=== PATIENT | male | born 1995 | race Caucasian/White ===

== ENCOUNTER 2017-10-19 21:05 | Emergency (ER) | payer OTHER ==
[~2017-10-19] VITALS: Ht 182.9 cm; Wt 126.2 kg
[~2017-10-19 21:05] MED LIST: ZOLO25TA PO
[2017-10-19 21:24] VITALS: BP 144/102; PULSE 102; RESP 18; TEMP 99; O2SAT 98
[2017-10-20] MEDS ORDERED: PHENERGAN W CODEIN PO (00:10)
[2017-10-20] MEDS ORDERED: ZITHTAB PO (00:10)
--- NOTE | 2017-10-20 00:10 | PD ---
HPI Chief Complaint: Cold / Flu Symptoms Time Seen by Provider: 23:37 Travel History International Travel<30 days: No Contact w/Intl Traveler<30days: No Traveled to known affect area: No History of Present Illness HPI 22-year-old male complains of persistent coughing. Patient states that he started having headache, earache sore throat coughing congestion body aches about 5 days ago. Patient with seen at local urgent care center and was not tested positive for flu. Patient does not know whether flu A or flu B. Patient with given prescription for Tessalon Perles for cough. Patient states that the headache, sore throat, body ache, got better. Patient however has persistent cough. Patient states that the cough is productive. Patient complains of chest wall pain with coughing. Patient states that he has occasional vomiting with coughing spells. Patient denies any fever chills now. Patient has been taking Tessalon without much relief of the coughing. PFSH Past Medical History ADHD: No Cancer: No Cardiovascular Problems: No Diabetes: No Psychiatric: Yes (DEPRESSION) Migraines: Yes (PAST) Seizures: No Thyroid Disease: No Ulcer: No Tetanus Vaccination: < 5 Years Influenza Vaccination: No Past Surgical History Other Surgery: No Social History Alcohol Use: No Tobacco Use: No Substance Use: No Allergies-Medications (Allergen,Severity, Reaction): Coded Allergies: No Known Allergies (Unverified Allergy, Unknown, 10/19/17) Penicillins (Verified Allergy, Unknown, 10/19/17) Reported Meds & Prescriptions Reported Meds & Active Scripts Active [Phenergan W Codein] 10 Ml PO Q8HR Zithromax Z-Jose (Azithromycin) 250 Mg Dspk 250 Mg PO DIRECTED 500 MG (2 tabs) day 1, then 1 tab days 2-5. Reported Zoloft (Sertraline HCl) 25 Mg Tab 25 Mg PO AFTER DINNER Review of Systems General / Constitutional: No: Fever Eyes: No: Visual changes HENT: No: Headaches Cardiovascular: No: Chest Pain or Discomfort Respiratory: Positive: Cough, No: Shortness of Breath Gastrointestinal: No: Abdominal Pain Genitourinary: No: Dysuria Musculoskeletal: No: Pain Skin: No Rash Neurologic: No: Weakness Psychiatric: No: Depression Endocrine: No: Polydipsia Hematologic/Lymphatic: No: Easy Bruising Physical Exam Narrative GENERAL: Well-nourished, well-developed patient. SKIN: Focused skin assessment warm/dry. HEAD: Normocephalic. EYES: No scleral icterus. No injection or drainage. TM: Clear. Throat: Nonerythematous. NECK: Supple, trachea midline. No JVD or lymphadenopathy. CARDIOVASCULAR: Regular rate and rhythm without murmurs, gallops, or rubs. RESPIRATORY: Breath sounds equal bilaterally. No accessory muscle use. GASTROINTESTINAL: Abdomen soft, non-tender, nondistended. MUSCULOSKELETAL: No cyanosis, or edema. BACK: Nontender without obvious deformity. No CVA tenderness. Neurologic exam normal. Data Data Last Documented VS Vital Signs Date Time Temp Pulse Resp B/P (MAP) Pulse Ox O2 Delivery O2 Flow Rate FiO2 10/19/17 21:24 99.0 102 18 144/102 (116) 98 Orders Orders Chest, Single Ap (10/19/17 23:50) [facility] Medical Decision Making Medical Screen Exam Complete: Yes Emergency Medical Condition: Yes Interpretation(s) Chest x-ray shows no acute consolidation. Differential Diagnosis Differential diagnosis including bronchitis, pneumonia. Narrative Course 22-year-old male with persistent cough after flu symptoms. Zithromax 500 mg p.o. given. Diagnosis Primary Impression: Bronchitis Patient Instructions: General Instructions Additional Instructions: Take medications as directed. Tylenol for fever. Follow-up with personal physician. Return if worse. Med/Other Pt SpecificInfo: Prescription(s) given Scripts [Phenergan W Codein] No Conflict Check 10 ML PO Q8HR for Cough, #120 Prov: Olu Parada MD 10/20/17 Azithromycin (Zithromax Z-Jose) 250 Mg Dspk 250 MG PO DIRECTED for Infection, #1 DSPK 0 Refills 500 MG (2 tabs) day 1, then 1 tab days 2-5. Prov: Olu Parada MD 10/20/17 Disposition: DISCHARGE HOME Condition: Stable Olu Parada MD Oct 20, 2017 00:10
--- NOTE | 2017-10-20 00:27 | RADRPT ---
EXAM DATE/TIME: 10/19/2017 23:56 [facility] COMPARISON: No previous studies available for comparison. INDICATIONS : Cough. MEDICAL HISTORY : None. SURGICAL HISTORY : None. ENCOUNTER: Initial ACUITY: 2 days PAIN SCORE: 0/10 LOCATION: Bilateral chest FINDINGS: A single view of the chest demonstrates the lungs to be symmetrically aerated without evidence of mas s, infiltrate or effusion. The cardiomediastinal contours are unremarkable. Osseous structures are intact. CONCLUSION: No acute disease. Asael Edmonds MD on October 20, 2017 at 0:25 Board Certified Radiologist. This report was verified electronically.
[2017-10-20] MEDS ORDERED: AZITHROMYCIN 250 MG TAB PO ONE (00:30)
== END 2017-10-20 00:29 | disposition home or self-care (01) ==
LOC: PHED 21:05
DX: J40 Bronchitis, not specified as acute or chronic (principal); R07.89 Other chest pain; R11.10 Vomiting, unspecified; F32.9 Major depressive disorder, single episode, unspecified
CPT/HCPCS: 71045; 99284

== ENCOUNTER 2017-12-10 14:55 | Emergency (ER) | payer OTHER ==
[~2017-12-10] VITALS: Ht 182.9 cm; Wt 127.0 kg
[~2017-12-10 14:55] MED LIST changes: +PHENERGAN W CODEIN PO; +ZITHTAB PO
[2017-12-10 15:00] VITALS: BP 140/98; PULSE 117; RESP 16; TEMP 98.3; O2SAT 97
[2017-12-10] MEDS ORDERED: PRED20 PO (15:17)
[2017-12-10] MEDS ORDERED: MAGICADU2 SWISH-SWAL (15:17)
[2017-12-10] MEDS ORDERED: AMOX875T PO (15:17)
--- NOTE | 2017-12-10 15:22 | PD ---
HPI Chief Complaint: ENT Complaint Time Seen by Provider: 15:10 Travel History International Travel<30 days: No Contact w/Intl Traveler<30days: No Traveled to known affect area: No History of Present Illness HPI 22-year-old male that presents to the ED for evaluation of sore throat. Per patient has had this for about 2-3 days. Swelling and exudates bilaterally. Per patient he also has had large tonsils but he has never had pain like this before. States having some congestion but no cough. Per patient herself to swallow. No other medical issues. Able to swallow with a lot of discomfort. Per patient the pain is 7 out of 10. Hasn't taken anything for this. No other medical issues. No recent travel. No sick contacts. No fevers chills or sweats. PFSH Past Medical History ADHD: No Cancer: No Cardiovascular Problems: No Diabetes: No Medical other: Yes (tonsilar stones) Psychiatric: Yes (DEPRESSION) Migraines: Yes (PAST) Seizures: No Thyroid Disease: No Ulcer: No Tetanus Vaccination: Unknown Influenza Vaccination: No Past Surgical History Surgical History: No Previous Surgery Other Surgery: No Social History Alcohol Use: No Tobacco Use: No Substance Use: No Allergies-Medications (Allergen,Severity, Reaction): Coded Allergies: No Known Allergies (Unverified , 12/10/17) Reported Meds & Prescriptions Reported Meds & Active Scripts Active Magic Mouthwash Adult Liq (Multi-Ingredient Mouthwash/Gargle) 120 Ml Susp 5 Ml SWISH-SWAL ACHS Each 5mL contains: Nystatin 200,000units, Diphenhydramine 4.25mg, Viscous Lidocaine 10mg, Blair syrup 0.8 mL Amoxicillin 875 Mg Tab 875 Mg PO BID 10 Days Prednisone 20 Mg Tab 20 Mg PO BID 5 Days Review of Systems Except as stated in HPI: all other systems reviewed are Neg Physical Exam Narrative GENERAL: Well-nourished, well-developed patient in no apparent distress. SKIN: Warm and dry. HEAD: Atraumatic. Normocephalic. EYES: Pupils equal and round reactive to light and accommodation. No scleral icterus. No injection or drainage. ENT: No nasal bleeding or discharge. Mucous membranes pink and moist. TMs are clear with no sign of infection or perforation. No mastoid tenderness. Ear canals are intact bilaterally. No lymphadenopathy. Nostril mucosa is red and moist with clear mucus noted. No sinus tenderness to palpation noted. Tonsils are enlarged or swollen bilaterally with exudates bilaterally and not touching. No ulvua Deviation. Tongue is midline. NECK: Trachea midline. No JVD. No meningeal signs noted CARDIOVASCULAR: Regular rate and rhythm. RESPIRATORY: No accessory muscle use. Clear to auscultation. Breath sounds equal bilaterally. GASTROINTESTINAL: Abdomen soft, non-tender, nondistended. Hepatic and splenic margins not palpable. MUSCULOSKELETAL: Extremities without clubbing, cyanosis, or edema. No obvious deformities. NEUROLOGICAL: Awake and alert. No obvious cranial nerve deficits. Motor grossly within normal limits. Five out of 5 muscle strength in the arms and legs. Normal speech. PSYCHIATRIC: Appropriate mood and affect; insight and judgment normal. Data Data Last Documented VS Vital Signs Date Time Temp Pulse Resp B/P (MAP) Pulse Ox O2 Delivery O2 Flow Rate FiO2 12/10/17 15:00 98.3 117 16 140/98 (112) 97 Orders Orders Ed Discharge Order (12/10/17 15:18) [facility] Medical Decision Making Medical Screen Exam Complete: Yes Emergency Medical Condition: Yes Medical Record Reviewed: Yes Differential Diagnosis Tonsillitis versus strep throat versus pharyngitis Narrative Course 22-year-old male to presents to the ED for evaluation of sore throat. Patient was probably examined and was found to have signs and symptoms consistent appears to be tonsillitis. Likely strep throat. We'll treat with amoxicillin, prednisone and Magic mouthwash. OTC meds as needed. Given note for work. Follow-up with PCP. See ED worsening symptoms. Diagnosis Primary Impression: Acute tonsillitis Qualified Codes: J03.90 - Acute tonsillitis, unspecified Patient Instructions: General Instructions Departure Forms: Tests/Procedures, Work Release Enter return to work date: Dec 12, 2017 Additional Instructions: Motrin and Tylenol for pain and fever. Drink plenty of fluids. Follow-up with PCP. See ED for worsening symptoms. Med/Other Pt SpecificInfo: Prescription(s) given Scripts Fwqitune-Lszyocruesswylg-Criumqkdv Liq (Magic Mouthwash Adult Liq) 120 Ml Susp 5 ML SWISH-SWAL ACHS for Mouth sores, #120 ML 0 Refills Each 5mL contains: Nystatin 200,000units, Diphenhydramine 4.25mg, Viscous Lidocaine 10mg, Blair syrup 0.8 mL Prov: Solomon Sawyer MD 12/10/17 Amoxicillin (Amoxicillin) 875 Mg Tab 875 MG PO BID for Infection for 10 Days, #20 TAB 0 Refills Prov: Solomon Sawyer MD 12/10/17 Prednisone (Prednisone) 20 Mg Tab 20 MG PO BID for 5 Days, #10 TAB 0 Refills Prov: Solomon Sawyer MD 12/10/17 Disposition: 01 DISCHARGE HOME Condition: Stable Bhupendra Egan Dec 10, 2017 15:22
== END 2017-12-10 15:28 | disposition home or self-care (01) ==
LOC: PHEFT 14:55
DX: J03.90 Acute tonsillitis, unspecified (principal); Z86.59 Personal history of other mental and behavioral disorders
CPT/HCPCS: 99283